=== PATIENT | male | born 1965 | race Caucasian/White ===

== ENCOUNTER 2024-06-03 07:55 | Emergency (ER) | payer OTHER ==
[~2024-06-03] VITALS: Ht 170.2 cm; Wt 60.0 kg
[2024-06-03 08:00] VITALS: BP 124/95; PULSE 99; RESP 18; TEMP 98.5; O2SAT 98
[2024-06-03] MEDS: TETANUS, DIPHTHERIA, PERTUSSIS VAC/PF 0.5ML (>10YR OLD) IM ONE (09:06)
== END 2024-06-03 11:07 ==
LOC: ER 07:55
DX: S00.511A Abrasion of lip, initial encounter (principal); S09.90XA Unspecified injury of head, initial encounter; M25.511 Pain in right shoulder; R73.9 Hyperglycemia, unspecified; V49.49XA Driver injured in collision with other motor vehicles in traffic accident, initial encounter; Y93.89 Activity, other specified; Y92.89 Other specified places as the place of occurrence of the external cause; Y99.8 Other external cause status
CPT/HCPCS: 73030; 82962; 90471; 90715; 99285